=== PATIENT | male | born 1965 | race Hispanic/Latino ===

== ENCOUNTER 2020-06-14 14:02 | Emergency (ER) | payer OTHER, SELFPAY ==
[2020-06-14 14:10] VITALS: BP 127/72; PULSE 66; RESP 16; TEMP 36.6; O2SAT 99
--- NOTE | 2020-06-14 14:52 | ED.EXTPRO ---
HPI - Extremity Problem General Chief complaint: Extremity Problem,Nontraumatic Stated complaint: toe pain, ingrown nail Time Seen by Provider: 06/14/20 14:06 Source: patient and family History of Present Illness HPI Narrative: 55 years old white male presents with pain of the left big toe. Started 6 days ago Patient tried to cut his nail at that time because ingrowing toenail, 1 day later started having yellow discharge, redness and pain. Patient denies any fever, chills, nausea, vomiting. Patient is not diabetic. Related Data Allergies Allergy/AdvReac Type Severity Reaction Status Date / Time ampicillin Allergy Unknown Hives Verified 06/14/20 14:14 Review of Systems Review of Systems: Narrative: CONSTITUTIONAL: Denies fever, chills, or sweats. EYES: Denies visual changes, redness, or discharge. ENT: Denies rhinorrhea, congestion, sore throat, or otalgia. CARDIOVASCULAR: Denies chest pain, palpitations, or edema. RESPIRATORY: Denies cough or dyspnea. GASTROINTESTINAL: Denies abdominal pain, nausea, vomiting, or diarrhea. GENITOURINARY: Denies dysuria or hematuria. SKIN: Denies rash or itching. MUSCULOSKELETAL: Denies back pain, joint pain, or myalgia. NEUROLOGIC: Denies headache, numbness, or weakness. PSYCHIATRIC: Denies anxiety or depression. [facility] Social History Social History (Updated 06/14/20 @ 14:55 by Jasmina Huggins MD) Smoking status: Never smoker Alcohol intake: never Substance use: never Exam Narrative: Exam Narrative: General appearance: Well-developed, well-nourished Skin: Normal color. Left big toe showed extensive erythema, redness and the swelling medially, with some yellow discharge. Plus ingrowing toenail Chest and respiratory: Airway patent, no respiratory distress, no accessory muscle use Heart: Regular rate/rhythm Vascular: Normal peripheral pulses, normal capillary refill. Neurologic: Alert and oriented ?3, [employer] is normal as tested, no gross motor deficit Course Course Emergency Course: Stable Vital Signs Vital signs: Vital Signs Temperature 36.6 C 06/14/20 14:10 Pulse Rate 66 06/14/20 14:10 Respiratory Rate 16 06/14/20 14:10 Blood Pressure 127/72 06/14/20 14:10 Pulse Oximetry 99 06/14/20 14:10 Temperature 36.6 C 06/14/20 14:10 Pulse Rate 66 06/14/20 14:10 Respiratory Rate 16 06/14/20 14:10 Blood Pressure 127/72 06/14/20 14:10 Pulse Oximetry 99 06/14/20 14:10 MDM - Extremity (Nontraumatic) MDM Narrative Medical decision making narrative: My plan to start patient on antibiotics, avoid tight shoes, postop shoe, follow-up with glass cleaning machine tender. Critical Care Time Critical Care Time Critical Care Time: No Discharge Plan Discharge Clinical Impression: Ingrowing toenail with infection Patient Disposition: Home, Self-Care Condition: Stable Instructions: Antibiotic Form, Cellulitis (ED), Ingrown Nail (ED) Additional Instructions: Discharge instructions, keep left foot elevated, do not wear tight shoes, ibuprofen/Tylenol as needed for pain, Prescriptions: New clindamycin HCl 300 mg capsule 300 mg PO Q6H Qty: 40 RF: 0 Follow-up/Referrals: Beck Robertson MD [Primary Care Provider] - Sam Salazar MD [Physician] - 06/17/20
== END 2020-06-14 15:07 | disposition home or self-care (01) ==
PROVIDERS: Emergency Provider Emergency Medicine; PCP Family Medicine
DX: L60.0 Ingrowing nail (principal)
CPT/HCPCS: 99283

== ENCOUNTER 2024-02-10 05:16 | Emergency (ER) | payer OTHER, SELFPAY ==
[2024-02-10 05:47] VITALS: PULSE 43
[2024-02-10 05:56] LABS: Basophils Absolute Auto 0.1 K/mm3 (0.0-0.1); Basophils Percent Auto 0.8 % (0.2-1.2); Eosinophils Absolute Auto 0.1 K/mm3 (0-0.3); Eosinophils Percent Auto 0.9 % (0-4.4); Hemoglobin 14.8 g/dL (14.0-18.0); Immature Granulocyte Absolute 0.02 K/mm3 (0.00-0.031); Immature Granulocyte Percent A 0.3 % (0-0.5); Lymphocytes Absolute Auto 2.64 K/mm3 (0.9-3.2); Lymphocytes Percent Auto 41.1 % (18.3-44.2); Mean Corpuscular HGB Conc 36.1 g/dl (32-36); Mean Corpuscular Volume 85.8 fl (80-100); Mean Platelet Volume 10.3 fl (7.4-10.4); Monocytes Absolute Auto 0.5 K/mm3 (0.1-0.6); Monocytes Percent Auto 8.1 % (2.6-8.5); Neutrophils Absolute Auto 3.1 K/mm3 (1.3-6.7); Neutrophils Percent Auto 48.8 % (45.5-73.1); Platelet Count Result 251 k/mm3 (150-375); Red Blood Count 4.78 M/mm3 (4.6-6.20); Red Cell Distribution Width 12.7 % (11.5-14.5); White Blood Count 6.4 K/mm3 (4.5-10.0)
[2024-02-10 06:00] LABS: Appearance Urine Clear (Clear); Bilirubin Urine Negative (Negative); Blood Urine Negative (Negative); Color Urine Yellow (Yellow); Glucose Urine UA Negative (Negative); Ketones Urine Negative (Negative); Leukocyte Esterase Ur Negative LEU/UL (Negative); Nitrate Urine Negative (Negative); Protein Urine Negative (Negative); Specific Grav Ur 1.024 (1.001-1.035); pH Urine 6.5 (5.0-9.0)
[2024-02-10 06:02] LABS: Add Urine Microscopic? NO
[2024-02-10 06:07] LABS: Alanine Aminotransferase 18 U/L (6-50); Alkaline Phosphatase 96 U/L (38-126); Anion Gap 7 mmol/L (4-12); Aspartate Amino Transferase 23 U/L (17-59); Bilirubin,Total 0.7 mg/dL (0.2-1.3); Blood Urea Nitrogen 16 mg/dL (9-20); Calcium 9.1 mg/dL (8.4-10.2); Carbon Dioxide 25 mmol/L (22-30); Chloride 107 mmol/L (98-107); Estimated CRCL calculation 100 ml/min; Estimated Glomerular Filt Rate > 60; Glucose 149 mg/dL (65-110); Lipase 93 U/L (23-300); Potassium 3.4 mmol/L (3.4-5.0); Sodium 139 mmol/L (137-145)
[2024-02-10 07:10] VITALS: BP 132/78; PULSE 78; RESP 16; TEMP 36.6; O2SAT 100
--- NOTE | 2024-02-10 07:12 | PC.NURSE ---
report given to JIM Adams at this time.
--- NOTE | 2024-02-10 07:31 | ED.ABDPAIN ---
HPI - Abdominal Pain General Chief Complaint: Abdominal Pain Stated Complaint: LLQ abd pain Time Seen by Provider: 02/10/24 05:28 History of Present Illness HPI narrative: Is a 4-year-old male who presents ER with left lower quadrant discomfort in the inguinal crease. Goes down towards the genital region. Ongoing for weeks. Had an outpatient CT to rule out hernia. No urinary frequency urgency or dysuria. It is worse after he is on his feet throughout the day. No trauma. Related Data Allergies Allergy/AdvReac Type Severity Reaction Status Date / Time ampicillin Allergy Unknown Hives Verified 02/10/24 05:38 Review of Systems Review of Systems: All systems reviewed & are unremarkable except as noted in HPI and below Constitutional: Constitutional: Reports no additional constitutional complaints ENT: Reports system reviewed and no additional complaints, except as documented Cardiovascular: Cardiovascular: Reports no additional cardiovascular complaints Respiratory: Respiratory: Reports no additional respiratory complaints Gastrointestinal: Gastrointestinal: Reports no additional gastrointestinal complaints Genitourinary: Genitourinary: Reports no additional male genitourinary complaints [facility] Past Medical History Medical History (Updated 02/10/24 @ 08:34 by Arnie Hart MD) Kidney malignancy Surgical History Surgical History (Updated 02/10/24 @ 08:32 by Arnie Hart MD) H/O knee surgery H/O prostatectomy Social History Social History (Updated 06/14/20 @ 14:55 by Jasmina Huggins MD) Smoking status: Never smoker Alcohol intake: never Substance use: never Exam Narrative: GENERAL: Well-appearing, well-nourished, and in no acute distress. HEAD: Normocephalic, atraumatic. ENT: Mucous membranes moist. CHEST: Clear to auscultation. No respiratory distress. HEART: Bradycardic and regular. Normal peripheral pulses. ABDOMEN: Soft, nontender, nondistended. EXTREMITIES: Normal range of motion. No edema. SKIN: Warm, dry, no rash. NEURO: Alert and oriented x3. PSYCH: Normal mood and affect. Course Course Emergency Course: patient could had a fat containing hernia with irritation. recommend decrease heavy lifting and scheduled anti-inflammatories as he has not been taking pain medication for this. Vital Signs Vital signs: Vital Signs Pulse Rate 43 L 02/10/24 05:47 Pulse Rate 43 L 02/10/24 05:47 MDM - Abdominal Pain Lab Data 02/10/24 05:50 02/10/24 05:50 Labs: Lab Results 02/10/24 Range/Units 05:50 WBC 6.4 (4.5-10.0) K/mm3 RBC 4.78 (4.6-6.20) M/mm3 Hgb 14.8 (14.0-18.0) g/dL Hct 41.0 L (42.0-52.0) % MCV 85.8 (80-100) fl MCH 31.0 (26-34) pg MCHC 36.1 H (32-36) g/dl RDW 12.7 (11.5-14.5) % Plt Count 251 (150-375) k/mm3 MPV 10.3 (7.4-10.4) fl Immature Gran % (Auto) 0.3 (0-0.5) % Neut % (Auto) 48.8 (45.5-73.1) % Lymph % (Auto) 41.1 (18.3-44.2) % [place] % (Auto) 8.1 (2.6-8.5) % Eos % (Auto) 0.9 (0-4.4) % Baso % (Auto) 0.8 (0.2-1.2) % Lymph # (Auto) 2.64 (0.9-3.2) K/mm3 [place] # (Auto) 0.5 (0.1-0.6) K/mm3 Eos # (Auto) 0.1 (0-0.3) K/mm3 Baso # (Auto) 0.1 (0.0-0.1) K/mm3 Abs Immat Gran (auto) 0.02 (0.00-0.031) K/mm3 Absolute Neuts (auto) 3.1 (1.3-6.7) K/mm3 Absolute Nucleated RBC 0.000 (0.0-0.012) K/mm3 Nucleated RBC % 0.0 (0.0-0.2) % Sodium 139 (137-145) mmol/L Potassium 3.4 (3.4-5.0) mmol/L Chloride 107 (98-107) mmol/L Carbon Dioxide 25 (22-30) mmol/L Anion Gap 7 (4-12) mmol/L BUN 16 (9-20) mg/dL Creatinine 0.70 (0.7-1.3) mg/dL Estim Creat Clear Calc 100 ml/min Estimated GFR > 60 (59 - ) Glucose 149 H (65-110) mg/dL Calcium 9.1 (8.4-10.2) mg/dL Total Bilirubin 0.7 (0.2-1.3) mg/dL AST 23 (17-59) U/L ALT 18 (6-50) U/L Alkaline Phosphatase 96 (38-126) U/L Total Protein 7.0 (6.3-8.2) g/dL Albumin 4.0 (
[2024-02-10] MEDS: KETOROLAC 30 MG/ML VIAL (*BKC) IV PUSH (07:41)
[2024-02-10 08:00] VITALS: BP 130/70; PULSE 76; RESP 16; TEMP 36.8; O2SAT 100
== END 2024-02-10 08:42 | disposition home or self-care (01) ==
PROVIDERS: Emergency Medicine; Emergency Provider Emergency Medicine
DX: R10.32 Left lower quadrant pain (principal); Z90.79 Acquired absence of other genital organ(s); Z85.528 Personal history of other malignant neoplasm of kidney
CPT/HCPCS: 36415; 80053; 81003; 83690; 85025; 96374; 99284; J1885